=== PATIENT | female | born 1995 | race Caucasian/White ===

== ENCOUNTER 2022-08-04 04:03 | Day surgery (SDC) | payer OTHER ==
[2022-07-30 12:07] VITALS: BMI 22.6
[2022-08-04] MEDS ORDERED: LIDOCAINE HCL/PF 2% SDV 5ML VIAL ONE (09:40)
[2022-08-04] MEDS ORDERED: PROPOFOL 40 ML ONE (09:41)
[2022-08-04] MEDS ORDERED: SUCCINYLCHOLINE CHLORIDE 200 MG/10 ML SYRINGE ONE (09:41)
[2022-08-04] MEDS ORDERED: MIDAZOLAM HCL 2 MG/2 ML SINGLE DOSE VIAL ONE (10:14)
[2022-08-04] MEDS ORDERED: IODINE/POTASSIUM IODIDE 5%/10% 14 ML BOTTLE NR ONE (10:15)
[2022-08-04] MEDS ORDERED: ONDANSETRON 4 MG/2 ML VIAL IVPUSH PRN (10:43)
[2022-08-04] MEDS ORDERED: oxyCODONE HCL 5 MG TABLET PO PRN (10:43)
[2022-08-04] MEDS ORDERED: ACETAMINOPHEN 325 MG TABLET (FP) PO PRN (10:50)
[2022-08-04] MEDS ORDERED: IBUPROFEN 400 MG TABLET (FP) PO PRN (10:50)
[2022-08-04 12:11] VITALS: RESP 20
[2022-08-04] MEDS ORDERED: oxyCODONE HCL 5 MG TABLET ONE (12:17)
[2022-08-04] MEDS ORDERED: oxyCODONE HCL 5 MG TABLET PO ONE (12:20)
[2022-08-04 13:55] VITALS: BP 123/80; PULSE 73; TEMP 98.6
== END 2022-08-04 15:50 | disposition home or self-care (01) ==
LOC: JASU-SURG 04:03
PROVIDERS: ATTEND Specialist
PROC: 0UBC7ZX Excision of Cervix, Via Natural or Artificial Opening, Diagnostic (ICD-10-PCS; principal; 2022-08-04 10:00)
DX: N87.1 Moderate cervical dysplasia (principal); R87.820 Cervical low risk human papillomavirus (HPV) DNA test positive
CPT/HCPCS: 81025; 88305-TC; 88307-TC; 94760